=== PATIENT | male | born 1990 | race Caucasian/White ===

== ENCOUNTER → 2017-04-08 | Outpatient (CLI) | payer BC ==
--- NOTE | 2017-04-08 20:36 | CT ---
EXAMINATION TYPE: CT abdomen w con DATE OF EXAM: 04/08/2017 COMPARISON: 09/15/2008 HISTORY: Upper abdominal pain CT DLP: 274.3 mGycm Automated exposure control for dose reduction was used. TECHNIQUE: Helical acquisition of images was performed from the lung bases through the top of iliac crest to include entire abdomen. CONTRAST: Performed with Oral Contrast and with IV Contrast, patient injected with 100 mL of Omnipaque 300. FINDINGS: Lung bases are clear. There is no pleural effusion. There is no 8 mm hypodense area in the superior l iver that is probably a cyst. Bile ducts are not dilated. Gallbladder spleen and pancreas appear norm al. There is no adrenal mass. Kidneys show satisfactory contrast opacification. There is no hydronephrosi s. Appendix appears normal. I see no intestinal wall thickening. There are no dilated loops. There is no retroperitoneal adenopathy. I see no bony destructive process.: IMPRESSION: TINY HEPATIC CYST WITHOUT CHANGE COMPARED TO OLD EXAM. NO SIGN OF ACUTE ABDOMEN. NORMAL APPENDIX.
== END | disposition home or self-care (01) ==
LOC: RADCTMAIN 18:59
PROVIDERS: ATTEND Family Medicine
DX: K76.89 Other specified diseases of liver (principal); R10.9 Unspecified abdominal pain
CPT/HCPCS: 74160; Q9967

== ENCOUNTER → 2019-07-18 | Outpatient (CLI) | payer BC ==
--- NOTE | 2019-07-18 15:59 | US ---
EXAMINATION TYPE: US st tissue neck DATE OF EXAM: 07/18/2019 COMPARISON: NONE CLINICAL HISTORY: 29-year-old male R59.9 ENLARGED LYMPH NODES. Fork Truck Operator notes: Patient states palpable area rt side of neck for several months. TECHNIQUE: Targeted ultrasound examination along the patient directed palpable site, right side of th e neck. FINDINGS: Sonography notes: Scanned directly over palpable area, right side of neck, that was pointed out by gemini gonzalez. There is a 1.6 x 0.5 x 1.0 cm node with flow. No other abnormality noted. IMPRESSION: Borderline sized 1.0 cm short axis lymph node upper right neck is nonspecific, probably reactive or p ostinflammatory. This can be followed clinically. If any growth is noted, the area can be reimaged.
== END | disposition home or self-care (01) ==
LOC: RADUSWWP 12:50
PROVIDERS: ATTEND Family Medicine
DX: R59.9 Enlarged lymph nodes, unspecified (principal)
CPT/HCPCS: 76536

== ENCOUNTER 2024-01-10 07:44 | Emergency (ER) | payer BC ==
[2024-01-10 07:49] VITALS: TEMP 98
[2024-01-10] MEDS: DIPHENOX-ATROP 2.5-0.025 MG 1 EACH TAB PO STA (08:26)
[2024-01-10] MEDS: SODIUM CHLORIDE 0.9% 500 ML 500 ML IV ONE (08:30)
[2024-01-10] MEDS: SODIUM CHLORIDE 0.9% 1,000 ML IV ONE (08:30)
[2024-01-10] MEDS: ONDANSETRON 4 MG/2 ML VIAL IVP STA (08:44)
--- NOTE | 2024-01-10 08:49 | ED ---
General Adult HPI - General Chief complaint: Nausea/Vomiting/Diarrhea Stated complaint: Flu like Symptoms Time Seen by Provider: 01/10/24 07:50 Source: patient, RN notes reviewed, old records reviewed Mode of arrival: ambulatory Limitations: no limitations - History of Present Illness Initial comments: This is a 33-year-old male who presents to the emergency department complaining that he has been having diarrhea for 4 days. Patient states has been taking Imodium and it has not helped. Patient states he had had some vomiting early on but he has not been vomiting since. Patient states has been trying to keep hydrated and eat a little but has been unable to eat a lot. Patient denies any abdominal pain. Patient states he has had a low-grade fever for 4 days. Patient denies any back pain. Patient has any dysuria hematuria urinary frequency. Patient Nu[place] any cough congestion or sore throat. Patient denies any chest pain or difficulty breathing. - Related Data Home Medications Medication Instructions Recorded Confirmed No Known Home Medications 05/24/14 05/24/14 Allergies Allergy/AdvReac Type Severity Reaction Status Date / Time No Known Allergies Allergy Verified 01/10/24 07:48 Review of Systems ROS Statement: Those systems with pertinent positive or pertinent negative responses have been documented in the HPI. ROS Other: All systems not noted in ROS Statement are negative. Past Medical History Past Medical History: No Reported History History of Any Multi-Drug Resistant Organisms: None Reported Past Surgical History: No Surgical Hx Reported Past Psychological History: No Psychological Hx Reported Past Alcohol Use History: Occasional Past Drug Use History: None Reported General Exam - General Exam Comments Initial Comments: GENERAL: Patient is well-developed and well-nourished. Patient is nontoxic and well- hydrated and is in mild distress. ENT: Neck is soft and supple. No significant lymphadenopathy is noted. Oropharynx is clear. Dry mucous membranes. Neck has full range of motion without eliciting any pain. EYES: The sclera were anicteric and conjunctiva were pink and moist. Extraocular movements were intact and pupils were equal round and reactive to light. Eyelids were unremarkable. PULMONARY: Unlabored respirations. Good breath sounds bilaterally. No audible rales rhonchi or wheezing was noted. CARDIOVASCULAR: There is a regular rate and rhythm without any murmurs gallops or rubs. ABDOMEN: Soft and nontender with normal bowel sounds. SKIN: Skin is clear with no lesions or rashes and otherwise unremarkable. NEUROLOGIC: Patient is alert and oriented x3. Cranial nerves II through XII are grossly intact. Motor and sensory are also intact. Normal speech, volume and content. Symmetrical smile. MUSCULOSKELETAL: Normal extremities with adequate strength and full range of motion. LYMPHATICS: No significant lymphadenopathy is noted PSYCHIATRIC: Normal psychiatric evaluation. Limitations: no limitations Course Vital Signs 01/10/24 07:46 Temperature 98 F Pulse Rate 89 Respiratory 18 Rate Blood Pressure 132/77 O2 Sat by Pulse 100 Oximetry Medical Decision Making - Medical Decision Making Was pt. sent in by a medical professional or institution (, LORIN, OPERATIONS EXAMINER, urgent care, hospital, or snf...) When possible be specific @ -No Did you speak to anyone other than the patient for history (EMS, parent, family, police, friend...)? What history was obtained from this source @ -No Did you review nursing and triage notes (agree or disagree)? Why? @ -I reviewed and agree with nursing and triage notes Were old charts reviewed (outside hosp., previous admission, EMS record, old EKG, old radiological studies, urgent care reports/EKG's, snf records)? Report findings @ -No old charts were reviewed Differential Diagnosis (chest pain, altered mental status, abdominal pain women, abdominal pain men, vaginal bleeding, weakness, fever, dyspnea, syncope, headache, dizziness, GI bleed, back pain, seizure, CVA, palpatations, mental health, musculoskeletal)? @ -Gastroenteritis, colitis, viral syndrome, COVID, this is not an all-inclusive list EKG interpreted by me (3pts min.). @ -As above X-rays interpreted by me (1pt min.). @ -None done CT interpreted by me (1pt min.). @ -None done U/S interpreted by me (1pt. min.). @ -None done What testing was considered but not performed or refused? (CT, X-rays, U/S, labs)? Why? @ -None What meds were considered but not given or refused? Why? @ -None Did you discuss the management of the patient with other professionals (professionals i.e. , LORIN, OPERATIONS EXAMINER, lab, RT, psych nurse, social director, animal control specialist, teacher, fisheries officer, test case developer)? Give summary @ -No Was smoking cessation discussed for >3mins.? @ -No Was critical care preformed (if so, how long)? @ -No Were there social determinants of health that impacted care today? How? (Homelessness, low income, unemployed, alcoholism, drug addiction, transportation, low edu. Level, literacy, decrease access to med. care, senior living, rehab)? @ -No Was there de-escalation of care discussed even if they declined (Discuss DNR or withdrawal of care, Hospice)? DNR status @ -No What co-morbidities impacted this encounter? (DM, HTN, Smoking, COPD, CAD, Cancer, CVA, ARF, Chemo, Hep., AIDS, mental health diagnosis, sleep apnea, morbid obesity)? @ -None Was patient admitted / discharged? Hospital course, mention meds given and route, prescriptions, significant lab abnormalities, going to OR and other pertinent info. @ -Patient was given Zofran and Lomotil for nausea and vomiting. Patient had no nausea vomiting while in the emergency department. Patient was also given a liter half of fluid he was feeling considerably better after all this was administered patient will be discharged home with a starter pack of Zofran and Lomotil. Undiagnosed new problem with uncertain prognosis? @ -No Drug Therapy requiring intensive monitoring for toxicity (Heparin, Nitro, Insulin, Cardizem)? @ -No Were any procedures done? @ -No Diagnosis/symptom? @ -Gastroenteritis Acute, or Chronic, or Acute on Chronic? @ -Acute Uncomplicated (without systemic symptoms) or Complicated (systemic symptoms)? @ -Complicated Side effects of treatment? @ -No Exacerbation, Progression, or Severe Exacerbation? @ -No Poses a threat to life or bodily function? How? (Chest pain, [place], [place], pneumonia, PE, COPD, DKA, ARF, appy, cholecystitis, CVA, Diverticulitis, Homicidal, Suicidal, threat to staff... and all critical care pts) @ -No - Lab Data Result diagrams: 01/10/24 08:20 01/10/24 08:20 Lab Results 01/10/24 01/10/24 Range/Units 08:20 08:20 WBC 4.7 (3.8-10.6) k/uL RBC 5.51 (4.30-5.90) m/uL Hgb 16.2 (13.0-17.5) gm/dL Hct 47.8 (39.0-53.0) % MCV 86.8 (80.0-100.0) fL MCH 29.5 (25.0-35.0) pg MCHC 34.0 (31.0-37.0) g/dL RDW 12.1 (11.5-15.5) % Plt Count 233 (150-450) k/uL MPV 8.7 Sodium 138 (137-145) mmol/L Potassium 4.3 (3.5-5.1) mmol/L Chloride 101 (98-107) mmol/L Carbon Dioxide 21 L (22-30) mmol/L Anion Gap 16 mmol/L BUN 15 (9-20) mg/dL Creatinine 0.77 (0.66-1.25) mg/dL Est GFR (CKD-EPI)AfAm >90 (>60 ml/min/1.73 sqM) Est GFR (CKD-EPI)NonAf >90 (>60 ml/min/1.73 sqM) Glucose 81 (74-99) mg/dL Calcium 9.4 (8.4-10.2) mg/dL Magnesium 1.8 (1.6-2.3) mg/dL Total Bilirubin 0.7 (0.2-1.3) mg/dL AST 32 (17-59) U/L ALT 20 (4-49) U/L Alkaline Phosphatase 66 (38-126) U/L Total Protein 7.3 (6.3-8.2) g/dL Albumin 4.6 (3.5-5.0) g/dL Disposition Clinical Impression: Gastroenteritis Disposition: HOME SELF-CARE Condition: Good Instructions (If sedation given, give patient instructions): Gastroenteritis ( ED) Is patient prescribed a controlled substance at d/c from ED?: No Referrals: None,Stated [Primary Care Provider] - 1-2 days Time of Disposition: 09:34
[2024-01-10 09:04] LABS: HCT 47.8 % (39.0-53.0); HGB 16.2 gm/dL (13.0-17.5); MCH 29.5 pg (25.0-35.0); MCV 86.8 fL (80.0-100.0); Mean Platelet Volume 8.7; Platelet Count 233 k/uL (150-450); RBC 5.51 m/uL (4.30-5.90); RDW 12.1 % (11.5-15.5); WBC 4.7 k/uL (3.8-10.6)
[2024-01-10 09:18] LABS: ALT 20 U/L (4-49); AST 32 U/L (17-59); African American GFR (CKD) >90 (>60 ml/min/1.73 sqM); Albumin 4.6 g/dL (3.5-5.0); Alkaline Phosphatase 66 U/L (38-126); Anion Gap 16 mmol/L; Blood Urea Nitrogen 15 mg/dL (9-20); Calcium 9.4 mg/dL (8.4-10.2); Carbon Dioxide 21 mmol/L (22-30); Chloride 101 mmol/L (98-107); Glucose 81 mg/dL (74-99); Magnesium 1.8 mg/dL (1.6-2.3); Non-African American GFR(CKD) >90 (>60 ml/min/1.73 sqM); Potassium 4.3 mmol/L (3.5-5.1); Sodium 138 mmol/L (137-145); Total Bilirubin 0.7 mg/dL (0.2-1.3); Total Protein 7.3 g/dL (6.3-8.2)
[2024-01-10] MEDS: ONDANSETRON 4 MG ODT STARTER PACK 2 TAB BTL PO STA (09:43)
[2024-01-10] MEDS: DIPHENOX-ATROP STARTER PACK 8 TAB BTL PO STA (09:43)
[2024-01-10 09:56] LABS: Lymphocytes # (M) 1.18 k/uL (1.0-4.8); Monocytes # (M) 0.89 k/uL (0-1.0); Neutrophils # (M) 2.63 k/uL (1.3-7.7); Neutrophils % (M) 56 %; Nucleated Red Blood Cells 0 /100 WBC (0-0); Total Cells Counted 100
[2024-01-10 10:04] VITALS: BP 136/72; PULSE 72; RESP 20
== END 2024-01-10 09:58 | disposition home or self-care (01) ==
LOC: EC 07:44
DX: K52.9 Noninfective gastroenteritis and colitis, unspecified (principal)
CPT/HCPCS: 36415; 80053; 83735; 85025; 99284; 96374; 96361; J2405; S0119

== ENCOUNTER 2024-02-22 08:10 | Emergency (ER) | payer BC ==
--- NOTE | 2024-02-22 08:53 | ED ---
Lower Extremity Injury HPI - General Chief Complaint: Extremity Injury, Lower Stated Complaint: L foot injury Time Seen by Provider: 02/22/24 08:19 Source: patient, RN notes reviewed, old records reviewed Mode of arrival: ambulatory Limitations: no limitations - History of Present Illness Initial Comments: This is a 34-year-old male to the ER for evaluation of significant left ankle pain and left foot pain. This occurred after stepping on a toy slide going down the stairs. He did lose his balance momentarily and was complaining of significant left foot pain and swelling this morning. Patient is able to walk ambulate and bear weight. No hip or back pain. No other complaints MD Complaint: ankle injury, foot injury (Left ankle and foot swelling) -: hour(s) Injury: Ankle: Left, Foot: Left Type of Injury: blunt, inversion Place: home Severity scale (1-10): 5 Improves With: nothing Context: fall, direct blow Associated Symptoms: snap/pop sensation, swelling Treatments Prior to Arrival: other (0) - Related Data Home Medications Medication Instructions Recorded Confirmed No Known Home Medications 05/24/14 05/24/14 Allergies Allergy/AdvReac Type Severity Reaction Status Date / Time No Known Allergies Allergy Verified 02/22/24 08:17 Review of Systems ROS Statement: Those systems with pertinent positive or pertinent negative responses have been documented in the HPI. ROS Other: All systems not noted in ROS Statement are negative. Past Medical History Past Medical History: No Reported History History of Any Multi-Drug Resistant Organisms: None Reported Past Surgical History: No Surgical Hx Reported Past Psychological History: No Psychological Hx Reported Smoking Status: Never smoker Past Alcohol Use History: Occasional Past Drug Use History: None Reported General Exam Limitations: no limitations General appearance: alert, in no apparent distress Head exam: Present: atraumatic, normocephalic, normal inspection Eye exam: Present: normal appearance, PERRL, EOMI. Absent: scleral icterus, conjunctival injection, periorbital swelling ENT exam: Present: normal exam, mucous membranes moist Neck exam: Present: normal inspection. Absent: tenderness, meningismus, lymphadenopathy Respiratory exam: Present: normal lung sounds bilaterally. Absent: respiratory distress, wheezes, rales, rhonchi, stridor Cardiovascular Exam: Present: regular rate, normal rhythm, normal heart sounds. Absent: systolic murmur, diastolic murmur, rubs, gallop, clicks GI/Abdominal exam: Present: soft, normal bowel sounds. Absent: distended, tenderness, guarding, rebound, rigid Extremities exam: Present: normal inspection, full ROM, normal capillary refill. Absent: tenderness, pedal edema, joint swelling, calf tenderness Back exam: Present: normal inspection Neurological exam: Present: alert, oriented X3, CN II-XII intact Psychiatric exam: Present: normal affect, normal mood Skin exam: Present: warm, dry, intact, normal color. Absent: rash Course Vital Signs 02/22/24 02/22/24 02/22/24 08:15 09:25 09:50 Temperature 97.8 F 98.1 F 97.9 F Pulse Rate 92 105 H 92 Respiratory 20 18 18 Rate Blood Pressure 119/68 129/75 128/80 O2 Sat by Pulse 99 98 99 Oximetry - Reevaluation(s) Reevaluation #1: 02/22/24 09:28 Medical records reviewed Reevaluation #2: 02/22/24 09:28 Patient no acute distress Reevaluation #3: 02/22/24 09:28 Patient informed of results questions answered Reevaluation #4: Was pt. sent in by a medical professional or institution (, PA, BIOCHEMICAL ENGINEER, urgent care, hospital, or long term...) When possible be specific @ -no Did you speak to anyone other than the patient for history (EMS, parent, family, police, friend...)? What history was obtained from this source @ -no Did you review nursing and triage notes (agree or disagree)? Why? @ -agree Are old charts reviewed (outside hosp., previous admission, EMS record, old EKG, old radiological studies, urgent care reports/EKG's, long term records)? Report findings @ -yes Differential Diagnosis (chest pain, altered mental status, abdominal pain women, abdominal pain men, vaginal bleeding, weakness, fever, dyspnea, syncope, headache, dizziness, GI bleed, back pain, seizure, CVA, palpatations, mental health, musculoskeletal)? @ -prior EKG interpreted by me (3pts min.). @ -no X-rays interpreted by me (1pt min.). @ -yes negative for acute disease CT interpreted by me (1pt min.). @ -no U/S interpreted by me (1pt. min.). @ -no What testing was considered but not performed or refused? (CT, X-rays, U/S, labs)? Why? @ -none What meds were considered but not given or refused? Why? @ -none Did you discuss the management of the patient with other professionals (professionals i.e. , PA, BIOCHEMICAL ENGINEER, lab, RT, psych nurse, neonatal social worker, water main inspector, teacher, public health service officer, porter sample case)? Give summary @ -no Was smoking cessation discussed for >3mins.? @ -no Was critical care preformed (if so, how long)? @ -no Were there social determinants of health that impacted care today? How? (Homelessness, low income, unemployed, alcoholism, drug addiction, transportation, low edu. Level, literacy, decrease access to med. care, detention, rehab)? @ -none Was there de-escalation of care discussed even if they declined (Discuss DNR or withdrawal of care, Hospice)? DNR status @ -no What co-morbidities impacted this encounter? (DM, HTN, Smoking, COPD, CAD, Cancer, CVA, ARF, Chemo, Hep., AIDS, mental health diagnosis, sleep apnea, morb id obesity)? @ -none Was patient admitted / discharged? Hospital course, mention meds given and route, prescriptions, significant lab abnormalities, going to OR and other pertinent info. @ - 34 male to the ER for evaluation of foot pain with significant hematoma. Patient has no fractures noted here on x-ray and able to ambulate with mild pain but is able to bear weight on left foot. Patient can be discharged home Discharge Undiagnosed new problem with uncertain prognosis? @ -no Drug Therapy requiring intensive monitoring for toxicity (Heparin, Nitro, Insulin, Cardizem)? @ -no Were any procedures done? @ -no Diagnosis/symptom? @ -Significant left ankle sprain n and foot pain and contusion Acute, or Chronic, or Acute on Chronic? @ -Acute Uncomplicated (without systemic symptoms) or Complicated (systemic symptoms)? @ -Complicated Side effects of treatment? @ -no Exacerbation, Progression, or Severe Exacerbation? @ -exacerbation Poses a threat to life or bodily function? How? (Chest pain, [place], [place], pneumonia, PE, COPD, DKA, ARF, appy, cholecystitis, CVA, Diverticulitis, Homicidal, Suicidal, threat to staff... and all critical care pts) @ -no Medical Decision Making - Medical Decision Making 34 male to the ER for evaluation of foot pain with significant hematoma. Patient has no fractures noted here on x-ray and able to ambulate with mild pain but is able to bear weight on left foot. Patient can be discharged home - Radiology Data Radiology results: report reviewed (X-ray left foot x-ray left ankle negative for acute disease), image reviewed Disposition Clinical Impression: Contusion of left foot, Hematoma of foot Disposition: HOME SELF-CARE Condition: Fair Instructions (If sedation given, give patient instructions): Foot Sprain (ED) Is patient prescribed a controlled substance at d/c from ED?: No Referrals: None,Stated [Primary Care Provider] - 1-2 days Time of Disposition: 09:30
--- NOTE | 2024-02-22 09:13 | XR ---
EXAMINATION TYPE: XR foot complete LT, XR ankle complete LT DATE OF EXAM: 02/22/2024 9:05 AM CLINICAL INDICATION:Male, 34 years old with history of pain; [facility] COMPARISON: None TECHNIQUE: XR foot complete LT, XR ankle complete LT examined in the AP, oblique, and lateral project ions. FINDINGS: No evidence of any acute osseous pathology. No evidence of soft tissue swelling. Joints are preserve d. Incidental note is made of symphalangism of the fifth distal interphalangeal joint. IMPRESSION: No evidence of acute fracture.
[2024-02-22 09:16] VITALS: PULSE 92
[2024-02-22 10:02] VITALS: BP 128/80; RESP 18; TEMP 97.9
== END 2024-02-22 10:02 | disposition home or self-care (01) ==
LOC: EC 08:10
DX: S90.32XA Contusion of left foot, initial encounter (principal); W22.8XXA Striking against or struck by other objects, initial encounter
CPT/HCPCS: 99283

== ENCOUNTER 2024-04-02 05:43 | Emergency (ER) | payer BC ==
[2024-04-02 05:48] VITALS: RESP 16
--- NOTE | 2024-04-02 06:35 | ED ---
General Adult HPI - General Chief complaint: Recheck/Abnormal Lab/Rx Stated complaint: Thrombo hemorrhoid Time Seen by Provider: 04/02/24 06:01 Source: patient, RN notes reviewed Mode of arrival: ambulatory Limitations: no limitations - History of Present Illness Initial comments: 34-year-old male presents emergency department with rectal pain. Patient states he had some hemorrhoids in the past but states is the worst it has been. He has tried a few things at home with no relief. Patient states that he did miss work on Thursday he did call Dr. White's office to make appointment 10 days. Patient denies any fevers or chills no rectal bleeding denies any pain internally with bowel movement - Related Data Previous Rx's Medication Instructions Recorded Hydrocortisone [Anusol-Hc] 1 applic RECTAL BID #30 gm 04/02/24 Allergies Allergy/AdvReac Type Severity Reaction Status Date / Time No Known Allergies Allergy Verified 04/02/24 05:46 Review of Systems ROS Statement: Those systems with pertinent positive or pertinent negative responses have been documented in the HPI. ROS Other: All systems not noted in ROS Statement are negative. Past Medical History Past Medical History: No Reported History History of Any Multi-Drug Resistant Organisms: None Reported Past Surgical History: No Surgical Hx Reported Past Psychological History: No Psychological Hx Reported Smoking Status: Never smoker Past Alcohol Use History: Occasional Past Drug Use History: None Reported General Exam Limitations: no limitations General appearance: alert, in no apparent distress Head exam: Present: atraumatic, normocephalic, normal inspection Eye exam: Present: normal appearance, PERRL, EOMI. Absent: scleral icterus, conjunctival injection, periorbital swelling Respiratory exam: Present: normal lung sounds bilaterally. Absent: respiratory distress, wheezes, rales, rhonchi, stridor Cardiovascular Exam: Present: regular rate, normal rhythm, normal heart sounds. Absent: systolic murmur, diastolic murmur, rubs, gallop, clicks GI/Abdominal exam: Present: soft, normal bowel sounds. Absent: distended, tenderness, guarding, rebound, rigid Rectal exam: Present: hemorrhoids Course Vital Signs 04/02/24 05:46 Temperature 98.9 F Pulse Rate 79 Respiratory 16 Rate Blood Pressure 119/67 O2 Sat by Pulse 99 Oximetry Medical Decision Making - Medical Decision Making Was pt. sent in by a medical professional or institution (Dr., PA, CONTROL CLERK SUBASSEMBLY, urgent care, hospital, or detention...) When possible be specific @ -No Did you speak to anyone other than the patient for history (EMS, parent, family, police, friend...)? What history was obtained from this source @ -No Did you review nursing and triage notes (agree or disagree)? Why? @ -I reviewed and agree with nursing and triage notes Were old charts reviewed (outside hosp., previous admission, EMS record, old EKG, old radiological studies, urgent care reports/EKG's, detention records)? Report findings @ -No old charts were reviewed Differential Diagnosis (chest pain, altered mental status, abdominal pain women, abdominal pain men, vaginal bleeding, weakness, fever, dyspnea, syncope, headache, dizziness, GI bleed, back pain, seizure, CVA, palpatations, mental health, musculoskeletal)? @ -Rectal abscess, fissure, hemorrhoid EKG interpreted by me (3pts min.). @ -None X-rays interpreted by me (1pt min.). @ -None done CT interpreted by me (1pt min.). @ -None done U/S interpreted by me (1pt. min.). @ -None done What testing was considered but not performed or refused? (CT, X-rays, U/S, labs)? Why? @ -None What meds were considered but not given or refused? Why? @ -None Did you discuss the management of the patient with other professionals (professionals i.e. LORIN Goel, CONTROL CLERK SUBASSEMBLY, lab, RT, psych nurse, secondary social studies teacher, museum exhibit technician, teacher, head correction officer, hospice case manager)? Give summary @ -No Was smoking cessation discussed for >3mins.? @ -No Was critical care preformed (if so, how long)? @ -No Were there social determinants of health that impacted care today? How? (Homelessness, low income, unemployed, alcoholism, drug addiction, badillo sportation, low edu. Level, literacy, decrease access to med. care, assisted, rehab)? @ -No Was there de-escalation of care discussed even if they declined (Discuss DNR or withdrawal of care, Hospice)? DNR status @ -No What co-morbidities impacted this encounter? (DM, HTN, Smoking, COPD, CAD, Cancer, CVA, ARF, Chemo, Hep., AIDS, mental health diagnosis, sleep apnea, morbid obesity)? @ -None Was patient admitted / discharged? Hospital course, mention meds given and route, prescriptions, significant lab abnormalities, going to OR and other pertinent info. @ -Discharge patient does have notable hemorrhoids there is no significant thrombosed area patient was given topical laking, Anusol will continue Tucks pads and sitz bath's Undiagnosed new problem with uncertain prognosis? @ -No Drug Therapy requiring intensive monitoring for toxicity (Heparin, Nitro, Insulin, Cardizem)? @ -No Were any procedures done? @ -No Diagnosis/symptom? @ -Hemorrhoid Acute, or Chronic, or Acute on Chronic? @ -Acute Uncomplicated (without systemic symptoms) or Complicated (systemic symptoms)? @ -Uncomplicated Side effects of treatment? @ -No Exacerbation, Progression, or Severe Exacerbation? @ -No Poses a threat to life or bodily function? How? (Chest pain, [place], [place], pneumonia, PE, COPD, DKA, ARF, appy, cholecystitis, CVA, Diverticulitis, Homicidal, Suicidal, threat to staff... and all critical care pts) @ -No Disposition Clinical Impression: Acute hemorrhoid Disposition: HOME SELF-CARE Condition: Stable Instructions (If sedation given, give patient instructions): Hemorrhoids (ED) Additional Instructions: Please continue sitz bath's, use of Tucks pads. please return to the Emergency Department if symptoms worsen or any other concerns. Prescriptions: Hydrocortisone [Anusol-Hc] 1 applic RECTAL BID #30 gm Is patient prescribed a controlled substance at d/c from ED?: No Referrals: None,Stated [Primary Care Provider] - 1-2 days Time of Disposition: 06:35
[2024-04-02] MEDS: LIDOCAINE 4% CREAM 5 GM TUBE TOPICAL ONE (06:45)
[2024-04-02 06:48] VITALS: BP 120/73; PULSE 70; TEMP 98.6
== END 2024-04-02 06:48 | disposition home or self-care (01) ==
LOC: EC 05:43
DX: K64.9 Unspecified hemorrhoids (principal)
CPT/HCPCS: 99283